=== PATIENT | female | born 1995 | race American Indian/Alaskan Native ===

== ENCOUNTER 2017-11-26 01:55 | Emergency (ER) | payer SELFPAY ==
[2017-11-26 02:02] VITALS: BP 137/97
[2017-11-26] MEDS ORDERED: BENADRYL PO ONE (04:43)
--- NOTE | 2017-11-26 04:44 | Emergency Department Report ---
ED Rash HPI - HPI Chief Complaint: Skin Rash Stated Complaint: BREAST PAIN Time Seen by Provider: 11/26/17 04:39 Duration: months Location: Upper Extremities, Other (breasts) Rash Symptoms: Yes Itching, Yes Peeling, Yes Blistering, No Facial Swelling, No Tongue/Oral Swelling, No Breathing Difficulties, No Choking Sensation, No Wheezing/Dyspnea, No Fever, No Lightheaded, No Malaise, No Myalgias Severity: moderate Other History: This is a 22-year-old female with a history of eczema who presents to ED complaining of eczema flareup of an itching intermittently for the past one month. ED Review of Systems ROS: Stated complaint: BREAST PAIN Other details as noted in HPI Constitutional: denies: chills, fever Eyes: denies: eye pain, eye discharge, vision change ENT: denies: ear pain, throat pain Respiratory: denies: cough, shortness of breath, wheezing Cardiovascular: denies: chest pain, palpitations Endocrine: no symptoms reported Gastrointestinal: denies: abdominal pain, nausea, diarrhea Genitourinary: denies: urgency, dysuria, discharge Musculoskeletal: denies: back pain, joint swelling, arthralgia Skin: rash, pruritus. denies: lesions Neurological: denies: headache, weakness, paresthesias Psychiatric: denies: anxiety, depression Hematological/Lymphatic: denies: easy bleeding, easy bruising ED Past Medical Hx - Past Medical History Previous Medical History?: Yes Hx Asthma: Yes - Surgical History Past Surgical History?: No - Social History Smoking Status: Never Smoker - Medications Home Medications: Home Medications Medication Instructions Recorded Confirmed Last Taken Type Calamine/Zinc Oxide [Calamine 1 applic TP DAILY #1 lotion 11/26/17 Unknown Rx Lotion] Hydroxyzine HCl 25 mg PO QHS #24 tablet 11/26/17 Unknown Rx Triamcinolone 0.5% [Kenalog 0.5% 1 applic TP TID #60 gm 11/26/17 Unknown Rx CREAM] Rash Exam - Exam General: Vital signs noted. No distress. Alert and acting appropriately. HEENT: No Periorbital Edema, No Conjuctival Injection, No Chemosis, No Perioral Edema, No Tongue Edema, No Uvular Edema, No Compromised Airway, No Drooling Lungs: Yes Good Air Exchange (Normal Breath Sounds), No Wheezes, No Ronchi, No Stridor, No Cough, No Labored Respirations, No Retractions, No Use of Accessory Muscles, No Other Abnormal Lung Sounds Heart: Yes Regular, No Murmur Front/Back of Body, Lg (Color): 1 - plaque like generalized eczema rash 2 - same as 1 3 - same as 1 Skin: Yes Urticarial Rash, Yes Maculopapular Rash, Yes Excoriations, Yes Erythema, No Morbilliform rash, No Bulla(e), No Weeping, No Tenderness, No Edema , No Encrustations Other: Positive: Abdomen Normal, Neurologic Normal, Musculoskeletal Normal ED Course Vital Signs 11/26/17 11/26/17 01:56 02:05 Temperature 98.7 F 98.7 F Pulse Rate 72 72 Respiratory 18 18 Rate Blood Pressure 137/97 137/97 O2 Sat by Pulse 97 97 Oximetry ED Medical Decision Making - Medical Decision Making 22-year-old female presents with eczema dermatitis ED course: patient received Solu-Medrol and Benadryl and ED Discussed patient's needs to see a corporate securities research analyst Web Operations Manager referral givn patient sent home with medications Vital signs are normalized patient is acute respiratory distress Critical care attestation.: If time is entered above; I have spent that time in minutes in the direct care of this critically ill patient, excluding procedure time. ED Disposition Clinical Impression: Atopic dermatitis, Eczema Disposition: - TO HOME OR SELFCARE Is pt being admited?: No Does the pt Need Aspirin: No Condition: Stable Instructions: Eczema (ED) Additional Instructions: Make sure to follow up with the primary care physician as discussed. Take all your medications as you've been prescribed. If you have any worsening symptoms or develop new symptoms please return to ED immediately. Prescriptions: Hydroxyzine HCl 25 mg PO QHS #24 tablet Calamine/Zinc Oxide [Calamine Lotion] 1 applic TP DAILY #1 lotion Triamcinolone 0.5% [Kenalog 0.5% CREAM] 1 applic TP TID #60 gm Referrals: PRIMARY CAREMD [Primary Care Provider] - 3-5 Days LOVELY FRANKLIN MD [Staff Physician] - 3-5 Days [facility] [Provider Group] - 3-5 Days INOCENCIO MIRZA MD [Referring] - 3-5 Days Forms: Accompanied Note, Work/School Release Form(ED) Time of Disposition: 05:35
== END 2017-11-26 05:40 | disposition home or self-care (01) ==
LOC: ED 01:55
DX: L20.9 Atopic dermatitis, unspecified (principal); J45.909 Unspecified asthma, uncomplicated
CPT/HCPCS: 96372; 99282; J2930